=== PATIENT | male | born 1990 | race Caucasian/White ===

== ENCOUNTER 2024-03-19 02:24 | Emergency (ER) | payer SELFPAY ==
[2024-03-19 02:26] VITALS: BP 173/106
--- NOTE | 2024-03-19 03:45 | ED.GENMED ---
History of Present Illness
<LAZARO Cavanaugh - Last Filed: 03/19/24 04:19>
General
Chief Complaint: Cardiac Symptoms
Source: patient
Time Seen by Provider: 03/19/24 03:22
Nursing documentation reviewed up to this point in time: agreed with
History of Present Illness
History of Present Illness:
Pt is a 33 yo M with a history of pulmonary embolism who presents to the ED with chest pain. Pt states that the chest pain began around 8am this morning and has been constant since it began. Pt states that the pain is located in the center of his
chest and he describes it as sharp. Pt states that sometimes when he lays to the sides or moves positioning the pain radiates across his chest. Pt states that the pain is worse when he lays down flat. Pt states that he took an NSAID around 6pm
without relief of pain. He states that this pain is different compared the pain when he previously had a PE. Pt denies pain or weakness in his upper extremities, cough, shortness of breath, palpitations, worsening pain with inspiration.
Pt states that after his PE in 10/2022, he took an anticoagulant for about 2 months and followed up with cardiology. He states he does not see cardiology anymore. Pt states he got an echocardiogram which showed mild LVH. Pt denies a personal history
of a clotting disorder. Pt states that he does not currently smoke.
Review of Systems
<LAZARO Cavanaugh - Last Filed: 03/19/24 04:19>
Review of Systems
Allergies reviewed?: Yes
Constitutional: Reports no symptoms
Respiratory: Reports no symptoms
Cardiac: Reports chest pain
ABD/GI: Reports no symptoms
Skin: Reports no symptoms
Neurological: Reports no symptoms
Phy Exam
<LAZARO Cavanaugh - Last Filed: 03/19/24 04:19>
General Physical Exam
General Presentation: well appearing and no apparent distress
General age: appears stated age
General Skin: warm
General Habitus: normal
General Mental: alert
Cardiovascular Exam
Cardiovascular Exam: regular rate/rhythm, no edema and other (no reproducible chest pain with palpation of sterum )
Pulmonary Exam
Pulmonary Exam: lungs clear
Course
<LAZARO Cavanaugh - Last Filed: 03/19/24 04:19>
Orders/Labs/Results
Orders:
Orders
03/19/24 02:29
ECG [Electrocardiogram (*1)] Urgent
Reason for Study: Chest Pain
EKG- Treatment ONCE
03/19/24 03:43
Basic Metabolic Panel Urgent
Complete Blood Count/With Diff Urgent
PTT Urgent
Prothrombin Time Urgent
TSH Urgent
03/19/24 05:01
CT Chest Pe Study Urgent
Comment:
Reason For Exam: midsternal cp similar to previous PE
03/19/24 05:04
Troponin I Urgent
Comment: REDRAW
03/19/24 03:43
03/19/24 03:43
Vital Signs
Initial and Last Documented VS:
Initial Vital Signs
Temp Pulse Resp BP Pulse Ox
98.4 F 84 20 173/106 100
03/19/24 02:26 03/19/24 02:26 03/19/24 02:26 03/19/24 02:26 03/19/24 02:26
Last Documented Vital Signs
Temp Pulse Resp BP Pulse Ox
98.4 F 79 18 148/108 98
03/19/24 02:26 03/19/24 04:00 03/19/24 04:00 03/19/24 04:00 03/19/24 04:00
<Javier Johnson DO - Last Filed: 03/19/24 05:58>
Orders/Labs/Results
Orders:
Orders
03/19/24 02:29
ECG [Electrocardiogram (*1)] Urgent
Reason for Study: Chest Pain
EKG- Treatment ONCE
03/19/24 03:43
Basic Metabolic Panel Urgent
Complete Blood Count/With Diff Urgent
PTT Urgent
Prothrombin Time Urgent
TSH Urgent
03/19/24 05:01
CT Chest Pe Study Urgent
Comment:
Reason For Exam: midsternal cp similar to previous PE
03/19/24 05:04
Troponin I Urgent
Comment: REDRAW
03/19/24 03:43
03/19/24 03:43
Vital Signs
Initial and Last Documented VS:
Initial Vital Signs
Temp Pulse Resp BP Pulse Ox
98.4 F 84 20 173/106 100
03/19/24 02:26 03/19/24 02:26 03/19/24 02:26 03/19/24 02:26 03/19/24 02:26
Last Documented Vital Signs
Temp Pulse Resp BP Pulse Ox
98.4 F 79 18 148/108 98
03/19/24 02:26 03/19/24 04:00 03/19/24 04:00 03/19/24 04:00 03/19/24 04:00
<LAZARO Cavanaugh - Last Filed: 03/19/24 04:19>
MDM/Problems Addressed
Differential Diagnosis Includes:
Pericarditis, myocarditis, PA
<LAZARO Cavanaugh - Last Filed: 03/19/24 04:19>
*Critical Care Note
Total Time (30-74mins, 75-104mins- exclusive of procedures): Not Applicable
<Javier Johnson DO - Last Filed: 03/19/24 05:58>
Update Note
Update Note:
CT Angiogram Chest:
IMPRESSION:
On a technical level, the study is adequate. There is no evidence of pulmonary embolism or dissection.
The lungs are clear. No pneumothorax or pleural effusion.
Normal heart size. No thoracic aortic aneurysm.
The report was faxed/transmitted at 5:51 AM EST. Please call [facility] at if you would like to discuss the case or have questions.
ED Attending Note
<LAZARO Cavanaugh - Last Filed: 03/19/24 04:19>
-
Portions of this chart may have been created with voice recognition software.� Occasional wrong word or��sound alike� substitutions may have occurred due to the inherent limitations of voice recognition software.
<Javier Johnson DO - Last Filed: 03/19/24 05:58>
ED Attending Note
Patient seen and examined by attending physician: Yes
I performed the substantive portion of visit, reviewed & personally made and approve the management plan that is documented in note by myself or YANETH.: Yes
ED Attending Note:
Pleasant 33-year-old male who presents with substernal chest pain that is been present for nearly 24 hours. He states that he does not radiate. He states that it is reminiscent of previous chest pain that he experienced prior to being diagnosed
with a pulmonary embolus. Denies fever chills. Patient took an NSAID tonight without relief of pain patient was seen in conjunction with the PA student. I have reviewed and agree with the history and treatment plan presented. On my independent
physical exam, patient is awake, alert, and oriented x3. No acute distress. Heart is regular rate and rhythm nontachycardic. Lungs are clear to auscultation bilaterally without wheezes rales or rhonchi present. Abdomen is soft nontender in all 4
quadrants. Nondistended. Skin is warm and dry. Moves all 4 extremities.
Discharge Plan
Departure
Patient Disposition: Home (Routine Discharge)
Date of Disposition: 03/19/24
Time of Disposition: 05:56
Patient with high blood pressure during this ER visit?: Yes
Condition: Good
Discharge Problem:
Chest pain
Instructions: Chest Pain (DC), BLOOD PRESSURE
Prescriptions:
No Action
No Current Medications
0
Referrals:
NONE,* [Family Provider] -
Óscar Mancini, DO [Active] - Call in 1-3 days for appt
Activity Restrictions/Additional Instructions:
It was a pleasure meeting you and taking part in your care. We hope for your continued healing and wellness.
Please read discharge instructions in their entirety. However, they are for general education and may not describe your exact diagnosis at discharge. Information on your ER visit and medical conditions were discussed with you along with appropriate
follow up information...
If indicated, please take your medications as instructed and indicated on discharge paperwork.
Please schedule a follow up appointment as directed. Call to schedule an appointment
Please return to the emergency department with ANY change in, persisting, or worsening of symptoms. If any of your symptoms do not improve, or persist, or become more severe within 6-12 hours, please return to the emergency department for further
care.
Please return to the emergency department if you develop a headache, neck pain/stiffness, fever greater than 100.4F, chest pain, shortness of breath, persistent nausea, vomiting, slurred speech, difficulty walking, numbness/tingling, weakness, signs
of infection or any other symptoms that are worrisome to you.
If you have any questions or concerns please do not hesitate to call the Hospital at or E-mail me directly at [email or web address]
Interventions
Interventions:
*Risk Screen - Suicide Last Done: 03/19/24 02:26
*General Assessment Last Done: 03/19/24 03:53
*Neglect/Abuse Screening Last Done: 03/19/24 02:26
ED- Fall Risk Assessment Last Done: 03/19/24 03:53
*ED COVID-19 Vaccine History Last Done: 03/19/24 03:53
ED- Pulmonary Assessment Last Done: 03/19/24 03:53
ED- Cardiac Assessment Last Done: 03/19/24 03:53
Discharge Date and Time
Print Language: MALAY
[2024-03-19 03:46] VITALS: BMI 34.6
[2024-03-19 03:52] VITALS: BP 143/99
[2024-03-19 03:54] LABS: % Basophils 0.5 % (0-2); % Eosinophils 3.5 % (0-6); % Immature Granulocytes 0.3 % (0-0.5); % Lymphocytes 32.4 % (20.5-51.1); % Monocytes 5.9 % (1.7-9.3); % Neutrophils 57.4 % (42.2-75.2); Absolute Basophils 0.1 10^3/uL (0-0.2); Absolute Eosinophils 0.4 10^3/uL (0-0.7); Absolute Lymphocytes 3.3 10^3/uL (1.2-3.4); Absolute Monocytes 0.6 10^3/uL (0.1-0.6); Absolute Neutrophils 5.8 10^3/uL (1.4-6.5); Hematocrit 45.5 % (39.0-52.0); Mean Corp Hgb Conc. 35.2 g/dL (33.0-37.0); Mean Corpuscular Hgb 30.8 pg (27.0-31.0); Mean Corpuscular Volume 87.7 fL (80.0-94.0); Mean Platelet Volume 9.3 fL (7.4-10.4); Nucleated Red Blood Cells % 0 % (-); Platelet Count 261 10^3/uL (130-400); Red Blood Cell Count 5.19 10^6/uL (4.70-6.10); Red Cell Dist. Width 12.5 % (11.5-14.5); White Blood Cell Count 10.1 10^3/uL (4.8-10.8)
[2024-03-19 04:00] VITALS: BP 148/108
[2024-03-19 04:04] LABS: APTT 31.3 Sec (23.4-35.0); INR 0.93; PT 12.8 Sec (11.4-14.6)
[2024-03-19 04:30] VITALS: BP 145/94
[2024-03-19 04:40] LABS: TSH 4.47 uIU/ml (0.47-4.68)
[2024-03-19 04:55] LABS: Blood Urea Nitrogen 20 mg/dl (9-20); Calcium 9.3 mg/dl (8.4-10.2); Carbon Dioxide 22 mmol/L (22-30); Chloride 107 mmol/L (98-107); Estimated Creatinine Clearance > 125 ml/min; Glucose 93 mg/dl (70-99); Sodium 140 mmol/L (135-145); eGFR > 60.00
[2024-03-19 05:00] VITALS: BP 140/108
[2024-03-19 05:41] LABS: Troponin I < 0.012 ng/ml
== END 2024-03-19 06:58 | disposition home or self-care (01) ==
LOC: EMR 02:24
PROVIDERS: EMERGENCY PHYSICIAN Student in an Organized Health Care Education/Training Program
DX: R07.89 Other chest pain (principal); Z86.711 Personal history of pulmonary embolism
CPT/HCPCS: 99284; 71275; 80048; 84443; 84484; 85025; 85610; 85730; 93005; Q9967

== ENCOUNTER 2024-12-24 08:48 | Emergency (ER) | payer OTHER, SELFPAY ==
[2024-12-24 08:51] VITALS: BP 159/104
[2024-12-24 09:27] VITALS: BMI 34.7
[2024-12-24 09:31] VITALS: BP 135/98
[2024-12-24 09:40] LABS: Hematocrit 43.5 % (39.0-52.0); Hemoglobin 15.3 g/dL (13.0-18.0); Mean Corp Hgb Conc. 35.2 g/dL (33.0-37.0); Mean Corpuscular Volume 86.8 fL (80.0-94.0); Nucleated Red Blood Cells % 0 % (-); Platelet Count 279 10^3/uL (130-400); Red Cell Dist. Width 12.9 % (11.5-14.5)
[2024-12-24 09:55] LABS: D-Dimer 0.85 ug/mlFEU (0.00-0.50)
[2024-12-24 09:58] LABS: ALT (SGPT) 42 U/L (0-50); AST (SGOT) 29 U/L (17-59); Albumin 4.6 g/dl (3.5-5.0); Alkaline Phosphatase 73 U/L (38-126); Blood Urea Nitrogen 16 mg/dl (9-20); Calcium 9.4 mg/dl (8.4-10.2); Carbon Dioxide 24 mmol/L (22-30); Chloride 107 mmol/L (98-107); Estimated Creatinine Clearance > 125 ml/min; Glucose 110 mg/dl (70-99); Potassium 4.6 mmol/L (3.5-5.1); Sodium 138 mmol/L (135-145); Total Protein 7.8 g/dl (6.3-8.2); eGFR > 60.00
--- NOTE | 2024-12-24 09:59 | ED.GENMED ---
History of Present Illness
General
Chief Complaint: Chest Pain
Source: patient
Exam Limitations: none
Time Seen by Provider: 12/24/24 09:00
Nursing documentation reviewed up to this point in time: agreed with
History of Present Illness
History of Present Illness:
Note:
CHIEF COMPLAINT(S)
Palpitations and sharp chest pain.
HISTORY OF PRESENT ILLNESS
The patient is a 34-year-old male who presents with a one-week history of palpitations and sharp chest pain. He describes the pain as intermittent and accompanied by the sensation of 'murmurs' in his chest. The patient reports that his at-home blood
pressure monitor has shown irregular readings, with a particularly high measurement this morning of 178/107 mmHg. He has a history of a blood clot approximately two years ago, for which he was prescribed a blood thinner for two months; the
underlying cause was not determined. The patient mentions he is not currently on medication but takes baby aspirin occasionally, which he feels alleviates some symptoms. He was last seen in an emergency room for similar issues in March 2020. His
EKG today was reported as normal.
EXTERNAL RECORDS REVIEWED
According to previous records, the patient underwent imaging with contrast during his last visit two years ago for similar symptoms, but no definitive cause was established.
MEDICATIONS
The patient is occasionally taking baby aspirin.
REVIEW OF SYSTEMS
- Cardiovascular: Reports palpitations and sharp chest pain.
- Neurological: No mention of headache, dizziness, or any neurological deficits.
PHYSICAL EXAM
General: Alert, no acute distress.
Skin: Warm, dry.
Head: Normocephalic, atraumatic.
Neck: Supple, trachea midline.
Eye, Ears, Nose, Mouth, and Throat: Oral mucosa moist.
Cardiovascular: Normal peripheral perfusion, No edema.
Respiratory: Respirations are non-labored.
Gastrointestinal: Abdomen nondistended.
Back: Normal range of motion, Normal alignment.
Musculoskeletal: Normal range of motion, normal strength.
Neurological: Alert and oriented to person, place, time, and situation, No focal neurological deficit observed.
Psychiatric: Cooperative, appropriate mood & affect.
PROBLEM LIST
Acute:
1. Palpitations
2. Sharp chest pain
3. Hypertension
PLAN
1. Conduct blood tests as a screening for blood clots.
2. Monitor and follow up on blood pressure readings.
3. Educate the patient on recognizing alarming symptoms and when to seek further medical assistance.
DIFFERENTIAL DIAGNOSIS
The Differential Diagnosis includes, in no particular order and is not limited to:
1. Atrial fibrillation
2. Premature atrial contractions
3. Hypertensive urgency
4. Pulmonary embolism
5. Myocardial infarction
6. Anxiety/panic disorder
7. Pericarditis
8. Gastroesophageal reflux disease (GERD)
9. Costochondritis
10. Hyperthyroidism
CARE-UPDATE
12/24/24 - 12:52
The patient has a small blood clot on the right side but is considered low risk and can be managed on an outpatient basis. The patient previously tolerated Eliquis well, and a prescription for Eliquis will be sent today. The patient will follow up
with pulmonology for further management and ensure completion of a previously recommended sleep study. The patient mentioned that chest tightness typically occurs in the evening after eating, possibly related to missing breakfast and lunch.
Monitoring of blood pressure is recommended, as the patient reported a high reading of 178/108 at home, but in-office readings were satisfactory. Follow-up with primary care is advised for further blood pressure evaluations and management.
EKG
My independent EKG interpretation is:
- Time of EKG: Not specified.
- Rhythm: Normal sinus rhythm.
- Heart Rate: 64 beats per minute.
- AL Interval: Normal.
- QRS Duration: Normal.
- QT Interval: Normal.
- Douglas: Normal.
- Abnormalities Observed: None noted.
- Comparison to Previous EKG: No change from the EKG of March 19, 2024.
Disposition:
SUMMARY OF ENCOUNTER
The patient, a 34-year-old male, visited the emergency department presenting with palpitations and sharp chest pain, accompanied by a history of hypertension with irregular blood pressure readings. The patient reported a significant past medical
history involving a blood clot two years ago, raising concern over a potential clot-related disorder. An independent review of imaging and lab results was conducted. After a thorough evaluation and consultation with a assorter, it was confirmed
that the patient has a right subsegmental pulmonary embolism.
DISPOSITION
Discharge.
ASSESSMENT
The patient was diagnosed with a right subsegmental pulmonary embolism, considered stable for outpatient treatment.
PLAN
Prescribe apixaban (Eliquis) due to prior tolerance and effectiveness for the patient. The patient is advised to follow up with pulmonology for continued management and to complete a previously suggested sleep study. Blood pressure monitoring is
recommended to continue at home.
INDEPENDENT REVIEW OF LABS AND INTERPRETATION OF TESTS
My independent EKG interpretation is normal with normal sinus rhythm, heart rate of 64 beats per minute, and no abnormalities observed. My independent imaging review concurs with previously suspected right subsegmental pulmonary embolism.
MEDICATION RECONCILIATION
Apixaban (Eliquis) 5 mg tablet prescribed, to be taken twice daily.
MEDICAL DECISION MAKING
-Complexity of Data Reviewed: Chronic conditions affecting care include history of blood clot, palpitations, sharp chest pain, hypertension, and current diagnosis of right subsegmental pulmonary embolism. Differential Diagnosis considered included
atrial fibrillation, premature atrial contractions, hypertensive urgency, pulmonary embolism, myocardial infarction, anxiety/panic disorder, pericarditis, gastroesophageal reflux disease (GERD), costochondritis, hyperthyroidism.
-Data:
Category 1: Previous external records reviewed, confirming history of a blood clot and imaging correlation.
Category 2: My independent interpretation of EKG showing normal sinus rhythm; imaging indicating right subsegmental pulmonary embolism.
Category 3: Discussion of management with Dr. Beltrán, assorter, confirming diagnosis and discharge plan.
-Risk: Consideration of Admission/Observation: Escalation of care including admission/observation was considered given the complexity and risk of the patients presenting complaint, exam findings, and/or their underlying comorbidities. However,
ultimately I feel the patient is safe for outpatient management with close follow up. Reasoning: Work-up reassuring, does not reveal any acute life/organ threatening processes, patients symptoms well controlled upon reevaluation, reexamination is
reassuring, vitals are stable, patient agreeable with discharge, reliable for follow-up. Prescription medication was prescribed, including apixaban for anticoagulation.
FOLLOW-UP INSTRUCTIONS
The patient should follow up with pulmonology for further management as planned.
DIAGNOSIS
- Right subsegmental pulmonary embolism, ICD-10 code: I26.90
Phy Exam
Physical Exam
Physical Exam:
.
Scores
Heart Score for Chest Pain Patients
STEMI patient?: Not applicable
Course
Orders/Labs/Results
Orders:
Orders
12/24/24 08:49
EKG [Electrocardiogram (*1)] Urgent
Reason for Study: Chest Pain
EKG- Treatment ONCE
12/24/24 09:18
IV Insert/Care/Rem.- Treatment PRN
Pulse Ox/cont/shift [RESP] Stat
Quantity: 1
12/24/24 09:19
Cardiac Monitoring- Treatment ONCE
12/24/24 09:28
Complete Blood Count/With Diff Urgent
Comprehensive Metabolic Panel Urgent
D-Dimer Urgent
Troponin I Urgent
12/24/24 10:11
CT Chest PE Study Urgent
Comment:
Reason For Exam: chest pain, elevated ddimer
Abnormal Lab Results
12/24/24
09:28
D-Dimer 0.85 H ug/mlFEU
(0.00-0.50)
Glucose 110 H mg/dl
(70-99)
12/24/24 09:28
12/24/24 09:28
Vital Signs
Initial and Last Documented VS:
Initial Vital Signs
Temp Pulse Resp BP Pulse Ox
98.2 F 83 16 159/104 98
12/24/24 08:51 12/24/24 08:51 12/24/24 08:51 12/24/24 08:51 12/24/24 08:51
Last Documented Vital Signs
Temp Pulse Resp BP Pulse Ox
98.2 F 70 13 131/91 96
12/24/24 08:51 12/24/24 13:00 12/24/24 13:00 12/24/24 13:00 12/24/24 13:00
*Pulse Oximetry
SaO2: 97
Oxygen Mode of Delivery: Room air
Patient hypoxic: no
*Critical Care Note
Total Time (30-74mins, 75-104mins- exclusive of procedures): Not Applicable
ED Attending Note
-
Portions of this chart may have been created with voice recognition software.� Occasional wrong word or��sound alike� substitutions may have occurred due to the inherent limitations of voice recognition software.
Discharge Plan
Departure
Patient Disposition: Home (Routine Discharge)
Date of Disposition: 12/24/24
Time of Disposition: 13:02
Patient with high blood pressure during this ER visit?: Yes
Condition: Good
Discharge Problem:
Pulmonary embolism
Instructions: Pulmonary embolism (DC), BLOOD PRESSURE
Prescriptions:
New
Eliquis DVT-PE Treat 30D Start 5 mg (74 tabs) tablets,dose pack
See Rx Instructions .ROUTE .COMPLEX Qty: 74 0RF
Rx Instructions:
orally per package directions
Referrals:
John Arita MD [Active, Pulmonary Medicine] - Call in 1-3 days for appt
NONE,* [Family Provider, Internal Medicine]
Interventions
Interventions:
*Risk Screen - Suicide Last Done: 12/24/24 08:51
*Neglect/Abuse Screening Last Done: 12/24/24 08:51
*ED- Fall Risk Assessment Last Done: 12/24/24 11:17
*Nursing Disposition Last Done: 12/24/24 13:16
ED- Cardiac Assessment Last Done: 12/24/24 11:17
Discharge Date and Time
Discharge Date/Time: 12/24/24 13:16
Print Language: THAI
[2024-12-24 10:00] VITALS: BP 135/97
[2024-12-24 10:05] LABS: Troponin I < 0.012 ng/ml
[2024-12-24 11:00] VITALS: BP 133/89
[2024-12-24 12:15] VITALS: BP 134/93
[2024-12-24 13:00] VITALS: BP 131/91
== END 2024-12-24 13:16 | disposition home or self-care (01) ==
LOC: EMR 08:48
PROVIDERS: EMERGENCY PHYSICIAN Emergency Medicine
DX: I26.93 Single subsegmental thrombotic pulmonary embolism without acute cor pulmonale (principal); R00.2 Palpitations
CPT/HCPCS: 99284; 71275; 80053; 84484; 85025; 85379; 93005; Q9967

== ENCOUNTER → 2025-02-26 13:57 | Outpatient (REF) | payer OTHER, SELFPAY | LOC: DHSLP 13:57 | PROVIDERS: ATTENDING PHYSICIAN Internal Medicine Critical Care Medicine; FAMILY PHYSICIAN Student in an Organized Health Care Education/Training Program | DX: G47.33 Obstructive sleep apnea (adult) (pediatric) (principal) | CPT/HCPCS: 95800 ==